=== PATIENT | female | born 1985 | race Two or more races ===

== ENCOUNTER 2021-06-04 14:55 | Emergency (ER) | payer MEDICAID, OTHER ==
[~2021-06-04] VITALS: Ht 162.6 cm; Wt 72.6 kg
[2021-06-04 17:57] VITALS: BP 140/95
== END 2021-06-04 18:05 | disposition home or self-care (01) ==
LOC: ER 14:55
DX: N64.4 Mastodynia (principal); F17.210 Nicotine dependence, cigarettes, uncomplicated
CPT/HCPCS: 76642